=== PATIENT | male | born 1940 | race Caucasian/White ===

== ENCOUNTER 2018-01-15 10:55 | Emergency (ER) | payer MEDICARE ==
[~2018-01-15 10:55] MED LIST: ACYC-50 PO; FISH OIL1 CAP PO; MULT-820 PO; NO ROUTINE MEDS; RABE20TA33 PO; RAN150 PO; ZOLP-350 PO
--- NOTE | 2018-01-15 11:02 | ER Report ---
History and Physical Time Seen By MD: 11:01 HPI/ROS CHIEF COMPLAINT: Laceration HISTORY OF PRESENT ILLNESS: This is a 77-year-old male presents to the emergency department for laceration to the left forearm. Approximately 20-30 minutes prior to arrival patient was opening a box with pierces ears a slipped and punctured his left distal forearm. Patient applied pressure and came to the emergency department for further evaluation. CMS intact distal to the injury. Bleeding is controlled. No fevers or chills. No aches or pains. REVIEW OF SYSTEMS: Respiratory: No cough, no dyspnea. Cardiovascular: No chest pain, no palpitations. Gastrointestinal: No vomiting, no abdominal pain. Musculoskeletal: No back pain. Integumentary: As above. Allergies: Coded Allergies: No Known Allergies (Verified Allergy, Mild, 01/15/18) Home Meds Active Scripts Cephalexin 500 Mg Tab (KEFLEX 500 MG TAB) 500 Mg Tablet, 500 MG PO Q6H, #28 TAB 0 Refills Prov:ASHIA MORRISON [employer] [facility] 01/15/18 Reported Medications [place]-3 Fatty Acids (Fish Oil) 1 Cap Capsule, 1 CAP PO DAILY, 0 Refills 12/01/09 Multivitamins (Multivitamin) 1 Tab Tablet, 1 TAB PO DAILY, 0 Refills 12/01/09 Acyclovir (Zovirax) 400 Mg Tablet, 800 MG PO BID, 0 Refills 12/01/09 Zolpidem Tartrate (Ambien) 10 Mg Tablet, 10 MG PO QHS Y, 0 Refills 12/01/09 Discontinued Reported Medications Rabeprazole Sodium (Aciphex) 20 Mg Tablet.dr, 20 MG PO BID, 0 Refills 12/01/09 Ranitidine Hcl (Zantac) 150 Mg Tab, 150 MG PO DAILY, 0 Refills 12/01/09 Past Medical/Surgical History The patient has a past medical surgical history of irregular heartbeat, gastric ulcers, prostate cancer, cervical spine fracture, back pain, 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 Reviewed Nurses Notes: Yes Constitutional Vital Sign - Last 24 Hours 01/15/18 01/15/18 01/15/18 01/15/18 10:59 11:01 11:25 11:30 Temp 97.5 Pulse 64 Resp 20 B/P (MAP) 117/76 117/76 (90) 109/71 (84) Pulse Ox 96 97 O2 Delivery Room Air 01/15/18 01/15/18 11:55 12:00 Pulse 60 B/P (MAP) 97/65 (76) Pulse Ox 96 Physical Exam General Appearance: The patient is alert, has no immediate need for airway protection and no current signs of toxicity. Eyes: Pupils equal and round no injection. Respiratory: Chest is non tender, lungs are clear to auscultation. Cardiac: regular rate and rhythm. Gastrointestinal: Abdomen is soft and non tender, no masses, bowel sounds normal. Musculoskeletal: Neck: Neck is supple and non tender. Extremities have full range of motion and are non tender. Skin: Laceration to the left forearm, palmar side, bleeding controlled. DIFFERENTIAL DIAGNOSIS: After history and physical exam differential diagnosis was considered for laceration. Medical Decision Making ED Course/Re-evaluation ED Course The patient was admitted to room. A history and physical were obtained. Differential diagnoses were considered. The were sent meter laceration was repaired as noted below. Patient tolerated well. The patient was placed on Keflex. Patient was also instructed to follow-up with his primary care provider in 7 days for reevaluation and suture removal. Monitor for signs of infection return to the ER for any other concerns worsening symptoms. She was in agreement with this plan of care and discharged home. Procedure: Laceration repair. Verbal consent was obtained from the patient. The 4 cm laceration on the left forearm was anesthetized in the usual fashion. The wound was scrubbed, draped and explored to its base with a gloved finger. There were no deep structures involved. No tendon injury was identified. The wound was repaired with 3 simple interrupted, internal sutures using, 5-0 Vicryl, 8, 4-0 proline simple interrupted sutures, 3, 5-0 proline simple interrupted sutures. The wound repair was complex. The procedure was performed by myself. Decision to Disposition Date: Jan 15, 2018 Decision to Disposition Time: 12:06 Depart Departure Latest Vital Signs Vital Signs Date Time Temp Pulse Resp B/P (MAP) Pulse Ox O2 Delivery O2 Flow Rate FiO2 01/15/18 12:00 97/65 (76) 01/15/18 11:55 60 96 01/15/18 10:59 97.5 20 Room Air Impression: Primary Impression: Laceration of left forearm Condition: Improved Disposition: HOME OR SELF-CARE Referrals: MALACHI SCHMIDT (PCP) New Scripts Cephalexin 500 Mg Tab (KEFLEX 500 MG TAB) 500 Mg Tablet 500 MG PO Q6H, #28 TAB 0 Refills Prov: ASHIA MORRISON 01/15/18 Patient Instructions: Acute Wound Care (ED), Laceration (ED) Additional Instructions: Take the Keflex as prescribed. Drink plenty of water. Get plenty of rest. Keep wound dry for 48 hours. Follow up with your primary care provider in the next 7 days to have sutures evaluated and removed. Monitor for signs of infection; redness, swelling, heat, discharge, increasing pain or red streaking. Take Tylenol or Ibuprofen as needed for pain. Return to the ER with any concerns. You may change dressing as needed. Problem Qualifiers Primary Impression: Laceration of left forearm Encounter type: initial encounter Qualified Codes: S51.812A - Laceration without foreign body of left forearm, initial encounter ASHIA MORRISON- Jan 15, 2018 11:01
[2018-01-15] MEDS ORDERED: DIPHTH/TETANUS/ACEL. PERTUSSIS IM ONLY ONE (11:10)
[2018-01-15 12:00] VITALS: BP 97/65
[2018-01-15] MEDS ORDERED: CEPH500T7 PO (12:07)
== END 2018-01-15 12:20 | disposition home or self-care (01) ==
LOC: ER 11:06
DX: S51.812A Laceration without foreign body of left forearm, initial encounter (principal); W26.8XXA Contact with other sharp object(s), not elsewhere classified, initial encounter; Z23 Encounter for immunization
CPT/HCPCS: 90471; 90715; 99283